=== PATIENT | female | born 1985 | race Caucasian/White ===

== ENCOUNTER → 2017-01-15 | Outpatient (CLI) | payer OTHER ==
[~2017-01-15] MED LIST: CALC-686 PO; PREN1TAB53 PO
[2017-01-15 17:52] LABS: ALT (SGPT) 24 U/L (9-52); AST (SGOT) 22 U/L (14-36)
[2017-01-15 17:53] LABS: CREATININE 0.8 MG/DL (0.7-1.2); GLOMERULAR FILTRATION RATE 84; PATIENT WEIGHT,URINE 111 KG
== END ==
LOC: LAB 17:04
PROVIDERS: ATTEND Obstetrics & Gynecology
DX: O16.9 Unspecified maternal hypertension, unspecified trimester (principal)
CPT/HCPCS: 36415; 82575; 84156; 84450; 84460; 85049

== ENCOUNTER 2017-01-24 05:57 | Inpatient (IN) | payer OTHER ==
[~2017-01-24] VITALS: Ht 177.8 cm; Wt 111.0 kg
--- OUTSIDE RECORDS SUMMARY | 2017-01-24 06:04 | XMS REPORT | Continuity of Care Document ---
Author Author [facility] Address Unknown Phone Unavailable Allergies Medications Problems Procedures Results Encounters ACCT No. Visit Date/Time Discharge Status Pt. Type Provider Facility Loc./Unit Complaint [id number] 01/17/2014 10:25:00 2013 23:59:59 CLS Outpatient
[2017-01-24] MEDS ORDERED: CALCIUM CARBONATE 500mg Chewable TAB PO PRN ×2 (06:15→18:15)
[2017-01-24] MEDS ORDERED: MAG-AL + SIM LIQUID 30 ML UDC PO PRN ×2 (06:15→18:15)
[2017-01-24] MEDS ORDERED: ACETAMINOPHEN 500 MG TABLET PO PRN ×2 (06:15→18:15)
[2017-01-24] MEDS ORDERED: LIDOCAINE 1% (10mg/ml) 2ml SDV ID PRN (06:15)
[2017-01-24] MEDS ORDERED: OXYTOCIN 30 UNIT in D5LR 500 ML SCH (06:15)
[2017-01-24] MEDS: LR 1,000 ML IV PRN ×3 (06:31→15:41)
[2017-01-24 06:36] VITALS: PULSE 147; PULSE 85; RESP 16; RESP 92; TEMP 97.6
[2017-01-24 06:38] LABS: HCT - HEMATOCRIT 35.8 % (36-46); HGB - HEMOGLOBIN 11.8 GM/DL (12-16); MEAN CORPUSCULAR HGB 27.6 UUG (26-34); MEAN CORPUSCULAR VOLUME 83.8 UM3 (80-100); RED BLOOD COUNT 4.27 M/MM3 (4.00-5.20); WBC - WHITE BLOOD COUNT 10.2 T/MM3 (4.5-11.0)
[2017-01-24] MEDS: D5LR 1,000 ML IV PRN ×2 (07:16→16:53)
[2017-01-24 07:48] VITALS: BP 147/92; O2SAT 97
[2017-01-24 07:55] LABS: ALBUMIN 3.1 G/DL (3.5-5.0); ALKALINE PHOSPHATASE 142 U/L (38-126); ALT (SGPT) 40 U/L (9-52); ANION GAP 11 MEQ/L (5-15); AST (SGOT) 24 U/L (14-36); BUN/CREATININE RATIO 13 RATIO (6-26); CALCIUM 9.7 MG/DL (8.4-10.2); CHLORIDE 109 MEQ/L (98-107); CO2 - CARBON DIOXIDE 21 MEQ/L (22-30); CREATININE 0.7 MG/DL (0.7-1.2); GLOMERULAR FILTRATION RATE 98; GLUCOSE 93 MG/DL (65-110); POTASSIUM 4.3 MEQ/L (3.6-5); SODIUM 141 MEQ/L (134-144); TOTAL PROTEIN 6.1 G/DL (6.3-8.2)
--- NOTE | 2017-01-24 09:51 | ANESOB ---
Epidural/ Date/Time DATE: 01/24/17 TIME: 09:46 Preop Diagnosis , induction 37 weeks REMY 02/14/17 Plan: Epidural, Spinal Height: 5 ' 10.00 " Weight: 111.000 kg BMI: kg/m2 NPO since: 429 banana P:2 Heart Rate: 120s Medications & Allergies Inpatient Medications Current Medications Medications (Trade) Dose Ordered Sig/Bryce Start Time Stop Time Status Last Admin Dose Admin Lidocaine HCl 0.2 mg 0.2 mg PRN PRN 01/24/17 06:15 Lactated Ringer's (Lactated Ringers) 1,000 ml @ 0 mls/hr Q0M PRN 01/24/17 06:11 01/24/17 06:31 0 MLS/HR Acetaminophen (Tylenol Extra Strength) 1-2 TABS = 500-1,000 MG Q4H PRN 01/24/17 06:15 Al Hydroxide/Mg Hydroxide (Maalox) 30 ml Q4H PRN 01/24/17 06:15 Calcium Carbonate 1-2 TABS Q2H PRN 01/24/17 06:15 Dextrose/Lactated Ringer's 1,000 ml @ 0 mls/hr Q0M PRN 01/24/17 06:45 01/24/17 07:16 0 MLS/HR Oxytocin/Dextrose/ Lactated Ringer's (Pitocin/D5lr) 503 ml @ 0 mls/hr Q0M 01/24/17 06:15 Calcium Carbonate (Tums) 1 Tab.chew Tab.chew, 1 TAB.CHEW PO PRN, (Reported) Last Taken: on 01/23/17 2130 Vits W-Ca,Fe,Fa(<1MG) () 1 Tab Tablet, 1 TAB PO DAILY, (Reported) Last Taken: on 01/22/17 0800 Coded Allergies: No Known Drug Allergies (Verified Allergy, 05/12/12) Medical/Surgical History Anesthesia PMH: Reports: *Hypertension (pre-eclampsia), Obesity, Reflux Smoking Status: Former smoker (quit at beginning of ) Does patient use chewing tobac: No Second Hand Exposure: No Substance Use Type: does not use Alcohol Intake: none Anesthesia Adverse Reactions: FOUND none Hx of Motion Sickness: No Complications During : Yes (elevated BP) Pertinent Findings Laboratory Tests 01/24/17 06:31 Physical Exam Respiratory: Bilat breath sounds equal, Lungs clear Cardiovascular: Regular rate, rhythm Airway Assessment Mallampati Score: I TMD: 3 Fingerbreadths Neck Extension: Good Overall Assessment: No Airway Concerns ASA: 3 Discussion Discussed risks/options/alternatives of anesthesia. Patient consents. Nursing pain assessment noted. Present for Discussion: Present: Family Member Attestation Statement Prior to the delivery of any anesthetic medication, I examined the patient, developed the plan, obtained the patient's consent and discussed the risk and benefits of the procedure with the patient/guardian. If the note happens to be signed after anesthesia start time, it is only due to providing efficient care of the patient and documenting at a time when the computer is available. TATIANA HEAD CRNA January 24, 2017 09:49
[2017-01-24] MEDS ORDERED: CEFAZOLIN 2 GM in D5W 50ml 50 ML IV ONE (12:00)
[2017-01-24] MEDS ORDERED: CITRIC ACID/SODIUM CITRATE 30 ML PO ONE (12:00)
[2017-01-24] MEDS ORDERED: FAMOTIDINE 20mg IVPB 50 ML IV ONE (12:00)
[2017-01-24] MEDS ORDERED: SALINE FLUSH 10ml SYRINGE ONE (12:19)
[2017-01-24] MEDS ORDERED: EPHEDRINE SULFATE 50mg/ml INJECTION ONE (12:19)
[2017-01-24] MEDS ORDERED: ONDANSETRON 4mg/2ml INJECTION IV PRN (13:15)
[2017-01-24] MEDS ORDERED: ROPIVACAINE 1% 200 MG, SUFENTANIL 50 MCG in NORMAL SALINE 80 ML EPI PRN (13:15)
[2017-01-24] MEDS ORDERED: DiphenhydrAMINE 50 MG/ML INJECTION IV PRN (13:15)
[2017-01-24] MEDS ORDERED: NALOXONE 0.4mg/ml INJECTION IV PRN (13:15)
[2017-01-24] MEDS ORDERED: OXYTOCIN 30 UNIT in D5W 500 ML IV ONE (18:08)
[2017-01-24] MEDS ORDERED: OXYTOCIN 30 UNIT in D5LR 500 ML IV ONE (18:08)
[2017-01-24] MEDS ORDERED: DiphenhydrAMINE 25 MG CAPSULE PO PRN (18:15)
[2017-01-24] MEDS ORDERED: MEASLES-MUMPS-RUBELLA VACCINE 0.5ml INJECTION SQ ONE (18:15)
[2017-01-24] MEDS ORDERED: MILK OF MAGNESIA 30 ML SUSP PO PRN (18:15)
[2017-01-24] MEDS ORDERED: PHENYLEPHRINE RECTAL SUPPOSITORY RECTALLY PRN (18:15)
[2017-01-24] MEDS ORDERED: HYDROCORTISONE 2.5% CREAM 30 GM RECTALLY PRN (18:15)
--- NOTE | 2017-01-24 18:24 | NUR ---
Epidural Epidural catheter removed without complications, tip intact, no S/S of infection noted. Area cleansed with alcohol, betadine and covered with a bandaid. Pt. educated about S/S of infection and to call doctor with concerns.
--- NOTE | 2017-01-24 18:46 | ANESPO ---
Post-Op Note Date 01/24/17 Time: 18:42 Status Pt Participated in Evaluation: Pt participated in person Vital Signs Date Time Temp Pulse Resp B/P Pulse Ox O2 Delivery O2 Flow Rate FiO2 01/24/17 07:48 147/92 97 01/24/17 06:36 97.6 85 16 Room Air Respiratory Function: Airway patent, Regular respirations Cardiovascular Function: Regular pulse Mental Status: Alert/oriented Pain Level Intensity: 0 (comfortable with delivery) Hydration: Taking po fluids Complications during Recovery None apparent Post-Anesthesia Notes moves feet Follow-Up Instructions Instructions Per Surgeon TATIANA HEAD CRNA January 24, 2017 18:46
--- NOTE | 2017-01-24 19:12 | LDNF ---
DATE OF DELIVERY: 01/24/2017 DIAGNOSES 1. 31-year-old white female G4, P2 at 37.0 weeks gestational age. 2. Pitocin induction of labor for preeclampsia. 3. Epidural anesthesia. 4. Artificial rupture of membranes. 5. Spontaneous vaginal delivery. 6. OP rotating to OA. 7. Female infant, Apgars, 3470 g (Lewis). 8. First-degree laceration - not repaired. This is a patient who was diagnosed with preeclampsia based on urine protein. She was set up for induction today at 37.0 weeks gestational age. After arrival she was determined to be in the breech presentation. After consultation I did an external cephalic version single attempt and it was successful. Then we began induction. She was 1 cm to start with. Pitocin reached a maximum of 22 milliunits a minute. Artificial rupture of membranes occurred at 2 cm. Eventually we made it to complete dilation and was OP. With pushing it rotated to OA. Then we had a vaginal delivery from the OA position. The was bulb suctioned after delivery of the head and then again after delivery of the body. Cord was doubly clamped and cut after it was allowed to drain for about a minute and a half. The infant's father cut the cord. The infant was initially placed on mother's abdomen. The placenta delivered spontaneously 12 minutes later. She is known to have a bilobed placenta with a velamentous cord insertion and this all came out intact. EBL was 150. There was a very small skin tear as a first-degree laceration that was small enough that it did not need to be repaired. Maternal blood type is O+. GBS was negative. Rubella is nonimmune so an MMR vaccination was ordered. [facility]
[2017-01-24] MEDS: IBUPROFEN 800 MG TABLET PO PRN (20:01)
--- NOTE | 2017-01-24 21:15 | NUR ---
Progress Note Pt ambulated to bathroom with RN supervision and denied dizziness. Pt unable to void at this time. RN educated pt about pericare and pad changes. Pt verbalized understanding and performed self pericare and RN assisted with skin care. Pad and ice pack changed with tucks pads and benzo spray applied. Will continue to monitor per plan of care.
[2017-01-24 22:55] VITALS: BP 140/75; PULSE 80; RESP 18; TEMP 98.1; O2SAT 98
--- NOTE | 2017-01-25 01:33 | NUR ---
Chart Check 24 hour chart check completed
--- NOTE | 2017-01-25 01:33 | NUR ---
Shift Summary Pt's VS stable. Fundus firm, minimal lochia, and voiding w/o difficulty. Pt tolerating po fluids and regular diet. IVSL. Pain controlled with po pain meds as ordered, Motrin. Pt up ad ludin in room. Pt providing cares for self and baby with help of at bedside. Pt attentive to infant needs and bonding appropriately. Pt baby well in cradle hold ad ludin. Call arellano in reach. Will continue to monitor per plan of care.
[2017-01-25 06:54] VITALS: BP 120/69; PULSE 76; RESP 18; TEMP 97.9; O2SAT 98
[2017-01-25 07:09] LABS: HCT - HEMATOCRIT 37.5 % (36-46); HGB - HEMOGLOBIN 12.1 GM/DL (12-16); MEAN CORPUSCULAR HGB 27.3 UUG (26-34); MEAN CORPUSCULAR HGB CONC(MCHC 32.3 GM/DL (31-37); MEAN CORPUSCULAR VOLUME 84.5 UM3 (80-100); MEAN PLATELET VOLUME 11.1 UM3 (9.4-12.4); RED BLOOD COUNT 4.44 M/MM3 (4.00-5.20); WBC - WHITE BLOOD COUNT 10.3 T/MM3 (4.5-11.0)
[2017-01-25] MEDS: IBUPROFEN 800 MG TABLET PO PRN ×2 (07:49→17:33)
[2017-01-25] MEDS: DOCUSATE CALCIUM 240 MG CAPSULE PO SCH (09:11)
--- NOTE | 2017-01-25 10:50 | OPNOTEF ---
DATE: 01/24/2017 PreOp Dx: Breech Presentation PROCEDURE NOTE: External Cephalic Version This is a 31-year-old white female, G4, P2, at 37.0 weeks gestational age. She was put on as an induction today because of preeclampsia based on urine proteinuria. After she arrived the nurse could not confirmed vertex presentation, so Pitocin was not started. A bedside sono by Dr. Willis showed breech presentation. She was known to have a velamentous cord insertion with a bi-lobed placenta. She also had preeclampsia. I arrived a little while later and sat down and had a long discussion with the patient and her around 10:00 to 10:30 regarding options of proceeding with versus attempting an external cephalic version. Risks, complications and alternatives were discussed. There was a slightly higher risk of procedure based on the cord and the preeclampsia. The patient and her conferred and about an hour later decided they wanted to try one shot at external cephalic version. I had everything set up for a with a room set up and open and an epidural block placed and then I did an external cephalic version. I use bedside sono and there was adequate fluid. The head was in the right upper quadrant. I did a forward somersault roll one time and it was successful. Heart tones are reactive before and after the procedure. Then we began Pitocin induction. Questions were answered to the patient and her 's satisfaction prior to and during the procedure. MARIYA
[2017-01-25] MEDS: HYDROCODONE/APAP 5 mg/325 mg TABLET PO PRN ×2 (12:13→19:56)
[2017-01-25 14:08] VITALS: BP 140/75; PULSE 75; RESP 18; TEMP 98.2; O2SAT 97
--- NOTE | 2017-01-25 14:39 | NUR ---
SHIFT SUMMARY VSS. FIRM FUNDUS, SCANT TO LIGHT LOCHIA. PAIN CONTROLLED WITH IBUPROFEN 800MG AND NORCO 5/325MG. PT AD EMELY, PERFORMS SELF CARES, SHOWERED THIS SHIFT. MMR GIVEN AND IV D/C'D. BABY WELL X2. DAMEON IN ROOM AND SUPPORTIVE.
[2017-01-25 17:45] VITALS: BP 137/77; PULSE 76; RESP 16; TEMP 98.2; O2SAT 97
--- NOTE | 2017-01-25 18:52 | PNPDOC ---
Prog Note 01/25/17 Doing well. No c/o. Seen this am as well. q&a cont routine care-LISETH Andrews MD January 25, 2017 18:51
[2017-01-26 01:00] VITALS: BP 131/74; PULSE 72; RESP 18; TEMP 98.3; O2SAT 95
--- NOTE | 2017-01-26 02:01 | NUR ---
Shift summary: VSS. Pt. is up ad ludin and performing self cares. Pt. reports light lochia. Pain controlled with Ibuprofen 800 mg and Grahn 5/325 mg. supportive and at bedside. Attentive to infant needs and performing cares.
[2017-01-26] MEDS: IBUPROFEN 800 MG TABLET PO PRN ×2 (03:44→11:07)
--- NOTE | 2017-01-26 07:12 | PNPDOC ---
MC Prog Note 01/26/17 doing ok no c/o headed to [place] today to get an echo on baby q&a dc instructions f/u 5-6 wks LISETH BLANCA MD January 26, 2017 07:11
[2017-01-26] MEDS ORDERED: IBUP-1547 PO (07:23)
[2017-01-26] MEDS ORDERED: HYDR-4246 PO (07:23)
[2017-01-26 08:39] VITALS: BP 136/83; PULSE 83; RESP 18; TEMP 98.1; O2SAT 98
--- NOTE | 2017-01-26 10:09 | NUR ---
CM THIS WORKER MET WITH PT. HOLDING BABY AT THIS TIME. THIS WORKER INTRODUCED SELF AND ROLE OF CASE MANAGEMENT. THIS WORKER DISCUSSED CARDIOLOGY APPOINTMENT. QUESTIONS ANSWERED REGARDING APPOINTMENT INFORMATION. PARENTS REPORTED THAT THEY HAVE ALL THE NECESSARY ITEMS FOR BABY AT HOME. PARENTS REPORTED FAMILY SUPPORT. DENIED NEEDS AT THIS TIME. THIS WORKER PROVIDED CONTACT INFORMATION AND ENCOURAGED TO CONTACT WITH ANY QUESTIONS OR NEEDS.
[2017-01-26] MEDS: DOCUSATE CALCIUM 240 MG CAPSULE PO SCH (11:07)
== END 2017-01-26 11:25 | disposition home or self-care (01) | DRG 775 ==
LOC: MC 05:57
PROVIDERS: ADMIT Obstetrics & Gynecology; ATTEND Obstetrics & Gynecology
PROC: 10E0XZZ Delivery of Products of Conception, External Approach (ICD-10-PCS; principal; 2017-01-24)
PROC: 10S0XZZ Reposition Products of Conception, External Approach (ICD-10-PCS; 2017-01-24)
PROC: 3E033VJ Introduction of Other Hormone into Peripheral Vein, Percutaneous Approach (ICD-10-PCS; 2017-01-24)
PROC: 10907ZC Drainage of Amniotic Fluid, Therapeutic from Products of Conception, Via Natural or Artificial Opening (ICD-10-PCS; 2017-01-24)
DX: O14.94 Unspecified pre-eclampsia, complicating childbirth (principal); O32.1XX0 Maternal care for breech presentation, not applicable or unspecified; O70.0 First degree perineal laceration during delivery; O43.193 Other malformation of placenta, third trimester; O43.123 Velamentous insertion of umbilical cord, third trimester; Z23 Encounter for immunization; Z3A.37 37 weeks gestation of pregnancy; Z37.0 Single live birth
CPT/HCPCS: 36415; 80053; 85027; 86850; 86870; 86900; 86901; 90707